=== PATIENT | female | born 1980 | race Caucasian/White ===

== ENCOUNTER 2017-05-26 18:59 | Emergency (ER) | payer OTHER ==
[~2017-05-26] VITALS: Ht 167.6 cm; Wt 87.1 kg
[2017-05-26 19:22] VITALS: Ht 167.6 cm; Wt 87.1 kg
[2017-05-27 00:14] VITALS: BP 118/80
== END 2017-05-27 00:14 | disposition home or self-care (01) ==
LOC: ED 18:59
DX: O99.519 Diseases of the respiratory system complicating pregnancy, unspecified trimester (principal); J98.01 Acute bronchospasm; J02.9 Acute pharyngitis, unspecified; Z3A.00 Weeks of gestation of pregnancy not specified